=== PATIENT | male | born 1960 | race Two or more races ===

== ENCOUNTER 2019-10-31 21:58 | Emergency (ER) | payer SELFPAY ==
--- NOTE | 2019-10-31 22:12 | ER Document Report ---
ED Medical Screen (RME) - General Chief Complaint: Nose Bleed Stated Complaint: NOSE BLEED Primary Care Provider: KRYSTEN GONZALEZ [Primary Care Provider] - Follow up as needed Notes: Patient is a 59-year-old male with a past medical history of anxiety who also uses Flonase and Afrin every day in the [place] who presents to the emergency department the chief complaint of nosebleed from the bilateral nares for the past hour. He states despite holding pressure continues to bleed, he has been blowing his nose and blowing out large clots. States nothing seems to be helping at this time. He is not take blood thinning medications. History of hypertension that they report is well controlled. No other symptoms. I have performed a rapid initial assessment of this patient. A comprehensive ED assessment and evaluation of the patient, analysis of test results and completion of medical decision making process will be conducted by additional ED providers. Doctor's Discharge - Discharge Referrals: KRYSTEN GONZALEZ [Primary Care Provider] - Follow up as needed
[2019-10-31] MEDS ORDERED: OXYMETAZOLINE HCL 0.05% NASAL SPRAY 15 ML BOTTLE NASL ONE (22:49)
[2019-10-31] MEDS ORDERED: TRANEXAMIC ACID INJ/PF 1,000 MG/10 ML SDV TOP ONE (23:51)
--- NOTE | 2019-10-31 23:54 | ER Document Report ---
ED General - General Chief Complaint: Nose Bleed Stated Complaint: NOSE BLEED Time Seen by Provider: 10/31/19 22:49 Primary Care Provider: KRYSTEN GONZALEZ [Primary Care Provider] - Follow up as needed Notes: 59-year-old male presents emergency department complaining of intermittent nosebleeds for the past few days. States that he for started having nosebleed a few days ago but decreased by stuffing tissues of his nose. Yesterday's nosebleed lasted for 4 hours and then this evening it started around 8 PM and he could not get it to stop. Patient denies being on any blood thinners, denies any trauma. States he has been using daily Flonase for years. States that he used to use Afrin once a day but stopped a few weeks ago because a family member or friend told him that he could get addicted to it. TRAVEL OUTSIDE OF THE [place] IN LAST 30 DAYS: No - Related Data Allergies/Adverse Reactions: No Known Allergies Allergy (Unverified 10/31/19 22:13) Home Medications: prilosec, lorazepam Past Medical History - General Information source: Patient - Social History Smoking Status: Never Smoker Chew tobacco use (# tins/day): No Frequency of alcohol use: None Drug Abuse: None Family History: Reviewed & Not Pertinent Patient has suicidal ideation: No Patient has homicidal ideation: No GI Medical History: Reports: Hx Gastroesophageal Reflux Disease Past Surgical History: Reports: Hx Cholecystectomy Review of Systems - Review of Systems Constitutional: No symptoms reported EENT: See HPI - Epistaxis. Cardiovascular: No symptoms reported Hematologic/Lymphatic: See HPI - Epistaxis. -: Yes All other systems reviewed and negative Physical Exam - Vital signs Vitals: Temp Pulse Resp BP Pulse Ox 98.1 F 95 20 196/113 H 96 10/31/19 22:00 10/31/19 22:00 10/31/19 22:00 10/31/19 22:00 10/31/19 22:00 Interpretation: Hypertensive - Notes Notes: GENERAL: Alert, interacts well. No acute distress. HEAD: Normocephalic, atraumatic EYES: Pupils equal, round and reactive to light, extraocular movements intact. ENT: Oral mucosa moist, tongue midline. Small amount of blood in both nostrils, right greater than left, no spurting, no growths noted, small amount of blood in the posterior oropharynx. No nasal septal hematoma. Tympanic membranes intact, no blood behind the tympanic membranes. NECK: Full range of motion, supple, trachea midline. LUNGS: no respiratory distress. EXTREMITIES: Moves all 4 extremities spontaneously. No cyanosis. NEUROLOGICAL: Alert and oriented x3, normal speech. PSYCH: Normal mood, normal affect. SKIN: Warm, Dry, normal turgor, no rashes or lesions noted. Course - Re-evaluation Re-evalutation: 10/31/19 23:54 Administered Afrin had the patient hold his nose for 30 minutes. Still has a very small trickle of blood. We will have the patient blow his nose again and then hold TXA soaked gauze in both nostrils for 30 minutes. If this does not succeed then patient will have nasal packing placed. 11/01/19 01:04 Patient still had bleeding after Afrin so TXA soaked gauze was applied to both nostrils, after it was removed there was a blood clot in the right nostril and no bleeding noted in the left nostril. He has been observed for another 35 minutes after this was removed. Still no further bleeding. Patient will be discharged home, requested follow-up with ear nose and throat as an outpatient. - Vital Signs Vital signs: Temp Pulse Resp BP Pulse Ox 98.1 F 90 18 160/101 H 93 10/31/19 22:00 11/01/19 00:05 11/01/19 00:05 11/01/19 00:05 11/01/19 00:05 Discharge - Discharge Clinical Impression: Recurrent anterior epistaxis, Epistaxis, recurrent Condition: Stable Disposition: HOME, SELF-CARE Additional Instructions: Nosebleed Instructions There is a significant chance of re-bleeding following a nosebleed. Proper care makes this less likely. Do not touch the nose for 24 hours. Do not blow the nose forcefully for one week. After 24 hours, gently apply Vaseline ointment to both nostrils with the tip of a finger, three times a day, for one week. It's normal to have a bloody mucous discharge for a few days. If active bleeding recurs, blow all the blood from the nose, squirt Afrin up both nostrils, then sit quietly and pinch the nose as firmly as possible for 30 minutes. If this does not stop the bleeding, return for further care. Persons with frequent nosebleeds should avoid aspirin (unless prescribed for another reason). Humidity in the bedroom, and petroleum jelly applied to the nostrils at night may help. Please call the ENTs office tomorrow morning to discuss your increasing frequency of nosebleeds. Referrals: ALONSO DELANEY DO [ASSOCIATE] - Follow up as needed ETHAN ESCALONA MD [ACTIVE STAFF] - Follow up as needed
[2019-11-01 01:18] VITALS: BP 148/72
== END 2019-11-01 01:17 | disposition home or self-care (01) ==
LOC: ER 21:58
PROC: 2Y41X5Z Packing of Nasal Region using Packing Material (ICD-10-PCS; principal; 2019-10-31)
DX: R04.0 Epistaxis (principal); Z79.899 Other long term (current) drug therapy
CPT/HCPCS: 30901; J3490 ×2; 96374; 99283